=== PATIENT | female | born 1985 | race Caucasian/White ===

== ENCOUNTER 2018-06-10 15:30 | Emergency (ER) | payer BC ==
[2018-06-10] MEDS ORDERED: LORazepam 2 MG/ML SDV IVPUSH ONE (16:03)
[2018-06-10] MEDS ORDERED: Acetaminophen 325 MG Tab PO ONE (16:03)
[2018-06-10] MEDS ORDERED: HYDROmorphone 1 MG/ML Syringe IVPUSH ONE (16:03)
[2018-06-10] MEDS ORDERED: Ondansetron 4 MG/2 ML SDV IVPUSH ONE (16:04)
--- NOTE | 2018-06-10 16:05 | EDM.PDOC ---
ED HPI GENERAL MEDICAL PROBLEM - General Chief Complaint: Fever Stated Complaint: FEVER FOR 18HR/ NOT ALOT OF MOVEMENT WITH FINGERS Time Seen by Provider: 06/10/18 15:49 Source of Information: Reports: Patient History Limitations: Reports: No Limitations - History of Present Illness INITIAL COMMENTS - FREE TEXT/NARRATIVE: 32-year-old female presents to the ED with her . She's not been feeling well since late last night. The fever before going to bed and went to bed early. And developed ARDS throbbing pounding headache. Associate with mild nausea. She did not vomit. She's only had a very little to eat today with no appetite. Has not developed any cough or sputum production. Had chills and rigors during the night and too hot 1 minute and to cold the next. He has been around people with influenza. She did have a flu shot this last year. She presents in tetany of her upper extremities. She has perioral numbness and tingling as well. She can still walk without the aid of her . She denies any possibility of with Mirena ring in place. No previous abdominal surgery. No cough sputum production. No genitourinary complaints. No stiff neck. Does have generalized myalgia with a headache Onset: Sudden Onset Date: 06/09/18 Onset Time: 21:00 Duration: Hour(s):, Getting Worse Location: Reports: Head (Headache), Upper Extremity, Left, Upper Extremity, Right (Tetany of the left hand tetany of the left hand and wrist), Other ( Generalized myalgia.) Quality: Reports: Ache, Throbbing, Other Severity: Moderate (Pounding headache fairly down to 1 or 2 out of 10. This is after taking Excedrin Migraine.) Improves with: Reports: Medication (Excedrin Migraine) Worsens with: Reports: Movement Context: Reports: Sick Contact. Denies: Activity, Exercise, Lifting, Trauma, Other Associated Symptoms: Reports: Diaphoresis, Fever/Chills, Headaches, Loss of Appetite, Malaise, Nausea/Vomiting. Denies: Confusion (Some linear close family has been ill with influenza a within the last 10 days), Chest Pain, Cough , cough w sputum, Rash, Seizure (Mild nausea without vomiting), Shortness of Breath, Syncope Treatments PICK UP ATTENDANT: Reports: Other (see below) (None.) Bilateral Hand Pain Score (Numeric/FACES): 3 - Related Data Allergies Allergy/AdvReac Type Severity Reaction Status Date / Time No Known Allergies Allergy Verified 02/03/18 16:51 Home Meds: Home Meds Escitalopram [Lexapro] 20 mg PO DAILY 02/03/18 [History] Levonorgestrel [Mirena] 1 dose VAG ASDIRECTED 02/03/18 [History] traZODone HCl [Trazodone HCl] 50 - 100 mg PO DAILY 02/03/18 [History] Potassium Chloride 20 meq PO BID #5 tablet.er 06/10/18 [Rx] Past Medical History Genitourinary History: Reports: Other (See Below) Other Genitourinary History: ovarian cysts Psychiatric History: Reports: Depression - Past Surgical History GI Surgical History: Reports: Cholecystectomy Musculoskeletal Surgical History: Reports: Other (See Below) Other Musculoskeletal Surgeries/Procedures:: cysts removed from right ankle Social & Family History - Tobacco Use Smoking Status *Q: Never Smoker - Caffeine Use Caffeine Use: Reports: Coffee, Soda - Recreational Drug Use Recreational Drug Use: No - Living Situation & Occupation Living situation: Reports: Occupation: Employed ED ROS GENERAL - Review of Systems Review Of Systems: See Below Constitutional: Reports: Fever, Chills, Malaise, Weakness, Fatigue, Decreased Appetite HEENT: Reports: No Symptoms Respiratory: Reports: No Symptoms Cardiovascular: Reports: No Symptoms Endocrine: Reports: Fatigue GI/Abdominal: Reports: Decreased Appetite, Nausea (Mild nausea) : Reports: No Symptoms Musculoskeletal: Reports: Muscle Pain (Generalized myalgia) Skin: Reports: No Symptoms Neurological: Reports: Dizziness, Other (Hyperventilation syndrome with paresthesias in arms and hands and periorally. She presents and tetany particularly of her left upper extremity) Psychiatric: Reports: Anxiety Hematologic/Lymphatic: Reports: No Symptoms Immunologic: Reports: No Symptoms - Physical Exam Exam: See Below Exam Limited By: No Limitations General Appearance: Alert, WD/WN, Moderate Distress (She presents in tetany particularly of both upper extremities. Left slightly worse than the right.) Eye Exam: Bilateral Eye: Normal Inspection Ears: Other (Right ear canal is 60% occluded with ear wax. Both TMs are normal) Throat/Mouth: Normal Inspection, Normal Lips, Normal Oropharynx Head Exam: Atraumatic, Normocephalic Neck: Normal Inspection, Supple, Non-Tender, Full Range of Motion. No: Carotid Bruit, Lymphadenopathy (L), Lymphadenopathy (R) Respiratory/Chest: Lungs Clear, Normal Breath Sounds (Mild tachypnea 20-24/m.), No Accessory Muscle Use, Chest Non-Tender, Respiratory Distress Cardiovascular: Normal Peripheral Pulses, Regular Rate, Rhythm, No Edema, No Gallop, No Murmur, No Rub GI/Abdominal: Soft, Non-Tender, No Organomegaly (Slightly hyperactive bowel sounds), No Abnormal Bruit, No Mass, Pelvis Stable, Abnormal Bowel Sounds Neuro Exam (Abbreviated): Alert, Oriented, CN II-XII Intact, Normal Cognition, Other (Presents with upper extremity tetany bilaterally. Slightly worse than the left as compared to the right.). No: Normal Gait, Normal Reflexes Back Exam: Normal Inspection, Full Range of Motion. No: CVA Tenderness (L), CVA Tenderness (R) Extremities: Normal Inspection, Normal Range of Motion, Non-Tender, No Pedal Edema Psychiatric: Normal Affect, Normal Mood Skin Exam: Warm, Dry, Intact, Normal Color, No Rash Course - Vital Signs Last Recorded V/S: Last Vital Signs Temp 38.3 C H 06/10/18 15:50 Pulse 78 06/10/18 15:50 Resp 20 06/10/18 15:50 BP 124/69 06/10/18 15:50 Pulse Ox 100 06/10/18 15:50 - Orders/Labs/Meds Orders: Active Orders 24 hr Category Date Time Status Dextrose 5%-0.9% NaCl [Dextrose 5%-Normal Saline] 1,000 Med 06/10/18 16:15 Active ml IV ASDIRECTED Medication Orders Dextrose/Sodium Chloride (Dextrose 5%-Normal Saline) 1,000 mls @ 500 mls/hr IV ASDIRECTED DENIZ Last Admin: 06/10/18 18:32 Dose: 500 mls/hr Infusion: 06/10/18 18:18 Dose: 500 mls/hr Admin: 06/10/18 16:18 Dose: 500 mls/hr Labs: Laboratory Tests 06/10/18 06/10/18 06/10/18 Range/Units 16:35 16:35 18:30 WBC 5.20 (3.98-10.04) K/mm3 RBC 4.71 (3.98-5.22) M/mm3 Hgb 14.5 (11.2-15.7) gm/L Hct 42.5 (34.1-44.9) % MCV 90.2 (79.4-94.8) fl MCH 30.8 (25.6-32.2) pg MCHC 34.1 (32.2-35.5) g/dl RDW Std Deviation 41.1 (36.4-46.3) fL Plt Count 148 L (182-369) K/mm3 MPV 10.9 (9.4-12.3) fl Neutrophils % (Manual) 88 H (40-60) % Band Neutrophils % 0 (0-10) % Lymphocytes % (Manual) 9 L (20-40) % Atypical Lymphs % 0 % Monocytes % (Manual) 2 (2-10) % Eosinophils % (Manual) 1 (0.7-5.8) % Basophils % (Manual) 0 L (0.1-1.2) Platelet Estimate Adequate RBC Morph Comment Normal Sodium 136 (136-145) mEq/L Potassium 2.6 L (3.5-5.1) mEq/L Chloride 103 (98-107) mEq/L Carbon Dioxide 22 (21-32) mEq/L Anion Gap 13.6 (5-15) BUN 11 (7-18) mg/dL Creatinine 0.9 (0.55-1.02) mg/dL Est Cr Clr Drug Dosing 80.00 mL/min Estimated GFR (MDRD) > 60 (>60) mL/min BUN/Creatinine Ratio 12.2 L (14-18) Glucose 169 H (74-106) mg/dL Calcium 8.0 L (8.5-10.1) mg/dL Total Bilirubin 0.8 (0.2-1.0) mg/dL AST 21 (15-37) U/L ALT 25 (14-59) U/L Alkaline Phosphatase 68 (46-116) U/L C-Reactive Protein 3.5 H* (<1.0) mg/dL Total Protein 6.5 (6.4-8.2) g/dl Albumin 3.6 (3.4-5.0) g/dl Globulin 2.9 gm/dL Albumin/Globulin Ratio 1.2 (1-2) Urine Color Yellow (Yellow) Urine Appearance Clear (Clear) Urine pH 7.5 (5.0-8.0) Ur Specific [place] 1.015 (1.005-1.030) Urine Protein Trace H (Negative) Urine Glucose (UA) Negative (Negative) Urine Ketones 1+ H (Negative) Urine Occult Blood Negative (Negative) Urine Nitrite Negative (Negative) Urine Bilirubin Negative (Negative) Urine Urobilinogen 0.2 (0.2-1.0) Ur Leukocyte Esterase Negative (Negative) Urine RBC 0-5 (0-5) /hpf Urine WBC 0-5 (0-5) /hpf Ur Epithelial Cells Not Reportable Ur Squamous Epith Cells 0-5 (0-5) /hpf Urine Bacteria Occasional (FEW) /hpf Urine Mucus Not seen (FEW) /hpf Meds: Medications Generic Name Dose Route Start Last Admin Trade Name Freq PRN Reason Stop Dose Admin Dextrose/Sodium Chloride 1,000 mls @ 500 mls/hr 06/10/18 16:15 06/10/18 18:32 Dextrose 5%-Normal Saline IV 500 mls/hr ASDIRECTED DENIZ Administration Discontinued Medications Generic Name Dose Route Start Last Admin Trade Name Freq PRN Reason Stop Dose Admin Acetaminophen 975 mg 06/10/18 16:03 06/10/18 16:18 Tylenol PO 06/10/18 16:04 975 mg NOW ONE Administration Hydromorphone HCl 0.5 mg 06/10/18 16:03 06/10/18 16:17 Dilaudid IVPUSH 06/10/18 16:04 0.5 mg ONETIME ONE Administration Hydromorphone HCl Confirm 06/10/18 16:22 06/10/18 17:39 Dilaudid Administered 06/10/18 16:23 Not Given Dose 0.5 mg .ROUTE .STK-MED ONE Potassium Chloride 10 meq/ 100 mls @ 100 mls/hr 06/10/18 17:30 06/10/18 17:30 Premix IV 06/10/18 18:29 100 mls/hr ONETIME ONE Administration Lorazepam 1 mg 06/10/18 16:03 06/10/18 16:17 Ativan IVPUSH 06/10/18 16:04 1 mg ONETIME ONE Administration Ondansetron HCl 4 mg 06/10/18 16:04 06/10/18 16:17 Zofran IVPUSH 06/10/18 16:05 4 mg ONETIME ONE Administration Potassium Chloride 20 meq 06/10/18 17:25 Klor-Con M20 PO 06/10/18 17:26 ONETIME ONE - Radiology Interpretation Free Text/Narrative:: 32-year-old female attends the ED with not feeling well since about 2100 hrs. last night when she developed sudden onset of generalized fever and headache. She had the chills and rigors throughout the night. Decreased appetite today. No development of cough or sputum production. Clinically she has half the signs and symptoms of influenza. She did have an influenza shot last year. She has been exposed recently to people who are influenza A positive. She presents in tetany from hyperventilation syndrome of her upper extremities primarily. Examination shows no bacterial source of infection. Plan influenza screen will be done. Routine labs including a urinalysis will be obtained. He has a Mirena ring in place and is unlikely to be . Plan IV D5 normal saline at 500 mils per hour. Given Ativan 1 mg IV for relief of anxiety/tetany. Zofran 4 mg IV for the for mild nausea. Tylenol 975 mg by mouth for fever relief. Dilaudid 0.5 mg IV for headache and body ache relief. - Re-Assessments/Exams Free Text/Narrative Re-Assessment/Exam: 06/10/18 17:17 Labs are back showing a white blood cell count of 5.20. Differential is pending. Hemoglobin 14.5 with hematocrit of 42.5. White count normal 140,000. Sodium was 136 potassium is very low at 2.6. Chloride 103 bicarbonate is 22. Anion gap is 13.6 BUN is 11 with a creatinine of 0.9. GFR is greater than 60. Glucose is elevated 169. Calcium is 8.0 bilirubin is 0.8. Liver function normal. C-reactive protein is elevated at 3.5. Total protein is 6.5 with an albumin fraction 3.6. Influenza screen is negative. 06/10/18 17:24 headache is pretty well gone to any is improved and she has full range of motion of her hands now. He has yet to void. She believes she will tolerate potassium supplement by mouth. Will start with 20 mEq.po. 06/10/18 18:35 will hang another IV of normal saline at 500 mils per hour. She is complaining that the potassium drip at 10 mg per hour is burning and had to be decreased in all given. Urine has just been collected for analysis. 06/10/18 19:05 Urinalysis is negative for any infection. Therefore getting a mixed picture with a low white count of 5.20 but a left shift of 88% neutrophils and a slightly elevated CRP at 3.5 suggesting possibility of an underlying bacterial infection. However this cannot be identified clinically. Feeling better and headache as stated away. He doesn't have much of an appetite. She has not started to cough in any way at all. Therefore I don't have a full explanation as to the cause for fever chills and headache. Have a suspicion that it's early influenza and that we may be seeing a false negative responses she came within 24 hours of the development of symptoms. Patient advised that if she continues to feel hot cold or spikes a fever greater than 102 in the next 12-24 hours or she develops a nonproductive cough then she needs to come back in for repeat flu testing. I am isaac brar to write a prescription for K-Dur 20 mEq twice daily for the next 2 days to make sure that her potassium returns to normal so that she doesn't have any further nausea or vomiting. She will try and increase her Gatorade and Powerade intake. Departure - Departure Time of Disposition: 19:06 Disposition: Home, Self-Care 01 Condition: Fair Clinical Impression: Acute febrile illness, Hypokalemia, Tetany Headache Qualifiers: Headache type: unspecified Headache chronicity pattern: acute headache Intractability: not intractable Qualified Code(s): R51 - Headache - Discharge Information *PRESCRIPTION DRUG MONITORING PROGRAM REVIEWED*: Not Applicable *COPY OF PRESCRIPTION DRUG MONITORING REPORT IN PATIENT SHERRIE: Not Applicable Prescriptions: Potassium Chloride 20 meq PO BID #5 tablet.er Referrals: PCP,None [Primary Care Provider] - Forms: ED Department Discharge Additional Instructions: Evaluation in the emergency room today in regards to acute onset of fever .Temperature was 38.3 when you arrived in the ED. This is equivalent to 101.5. Associated significant headache at the time of initial visit but with no cough or other signs or symptoms of bacterial infection. I count was found to be 5.20 which is well within the normal range. Markers for inflammation were mildly elevated at 3.5. Urinalysis proved to be negative. Influenza screen proved to be negative as well. Is my suspicion that she will likely have early influenza. Often the test can be false negative when symptoms developed within 24 hours of onset for we get a flu sample. Therefore if you continue to run fever greater than 101 with associated chills headache and body aches and development of productive cough for the next 12-24 hours he should return to medical care for antiviral medication Tamiflu. Tamiflu was taken 75 mg twice daily for 5 days to bring the viral infection under control Second problem identified today was low serum potassium level at 2.6. This usually is low because you have not been able to eat much for the last few days. You're treated with 10 mEq potassium intravenously and 20 mg 1 tablet by mouth. I have written this prescription for potassium supplement K-Dur 20 milligrams to be taken twice daily for the next 2- 1/2 days to make sure your serum potassium level improves. At the time of aggravated by the low potassium level. Suggest plenty of fluids such as Gatorade or Powerade which has potassium minute or any other juices. He can nearly tomato juices high in potassium. Her of any kind usually has a high potassium load. Continue Motrin 600 mg every 6 hours as needed for body aches, fever or headache. - My Orders Last 24 Hours: My Active Orders 06/10/18 16:15 Dextrose 5%-0.9% NaCl [Dextrose 5%-Normal Saline] 1,000 ml IV ASDIRECTED - Assessment/Plan Last 24 Hours: My Active Orders 06/10/18 16:15 Dextrose 5%-0.9% NaCl [Dextrose 5%-Normal Saline] 1,000 ml IV ASDIRECTED
[2018-06-10] MEDS: Dextrose 5%-0.9% NaCl 1,000 ML IV SCH ×2 (16:18→18:32)
[2018-06-10] MEDS ORDERED: HYDROmorphone 0.5 MG/0.5 ML Syringe ONE (16:22)
[2018-06-10] MEDS ORDERED: Potassium Chloride 20 MEQ Tab.ER PO ONE (17:25)
[2018-06-10] MEDS ORDERED: Potassium Chloride 10 MEQ in Premix Bag 1 BAG IV ONE (17:30)
== END 2018-06-10 19:35 | disposition home or self-care (01) ==
LOC: JD.ED 15:30
DX: E87.6 Hypokalemia (principal); R51 Headache; R29.0 Tetany; R50.9 Fever, unspecified; F32.9 Major depressive disorder, single episode, unspecified; Z79.899 Other long term (current) drug therapy
CPT/HCPCS: 36415; 80053; 81001; 85007; 85027; 86140; 87804; 96361; 96365; 96375; 99283; A9270; J2060; J2405; J3480; J7042; 99284; J1170